=== PATIENT | female | born 1990 | race Caucasian/White ===

== ENCOUNTER 2019-12-18 15:20 | Emergency (ER) | payer OTHER ==
[2019-12-18] MEDS ORDERED: HYDROcodone/Acetaminophen 5/325 mg Tablet ONE (16:04)
--- NOTE | 2019-12-18 21:27 | RAD ---
RIGHT WRIST THREE VIEWS: Date: 12-18-2019 FINDINGS: The horizontal fracture is seen through the distal ulnar shaft. There is no displacement and minimal angulation. The distal radius and the carpal bones appear normal. IMPRESSION: Nondisplaced fracture of the distal ulna. POS: HOME
== END 2019-12-18 16:24 | disposition home or self-care (01) ==
LOC: BURERS 15:20
DX: S52.201A Unspecified fracture of shaft of right ulna, initial encounter for closed fracture (principal); F41.9 Anxiety disorder, unspecified; F32.9 Major depressive disorder, single episode, unspecified; F17.210 Nicotine dependence, cigarettes, uncomplicated; Z79.899 Other long term (current) drug therapy; W22.8XXA Striking against or struck by other objects, initial encounter
CPT/HCPCS: 29105